=== PATIENT | female | born 1985 | race Caucasian/White ===

== ENCOUNTER 2016-09-05 16:20 | Outpatient (CLI) | payer BC, OTHER ==
[2016-09-05 17:37] LABS: BASOPHILS % 0.3 (0.0-1.5); EOSINOPHILS % 1.8 % (0.0-6.8); MEAN CORPUSCULAR VOLUME 91.2 fl (80.0-100.0); NEUTROPHILS # 6.4 # k/uL (1.4-7.7)
[2016-09-05 17:38] LABS: APPEARANCE,URINE Clear (CLEAR); COLOR,URINE Yellow (YELLOW); OCCULT BLOOD,URINE Trace-intact (NEGATIVE); PH URINE 5.5 (5.0 - 8.0); UROBILINOGEN URINE 0.2 Eu (0.2-1.0)
[2016-09-05 18:00] LABS: eGFR (African) 21; eGFR (Non-African) 17
[2016-09-06 05:01] LABS: PROTEIN mg/dL 90 mg/dL
== END 2016-09-05 16:21 ==
LOC: NEPHRO 16:20
PROVIDERS: ATTEND Internal Medicine Nephrology
DX: N26.9 Renal sclerosis, unspecified (principal); R80.9 Proteinuria, unspecified
CPT/HCPCS: 36415; 80053; 81002; 82570; 84156; 85025; 99213

== ENCOUNTER 2016-09-26 14:24 | Outpatient (CLI) | payer BC, OTHER | END 2016-09-26 14:25 | LOC: NEPHRO 14:24 | PROVIDERS: ATTEND Internal Medicine Nephrology | DX: N04.9 Nephrotic syndrome with unspecified morphologic changes (principal); N26.9 Renal sclerosis, unspecified; I10 Essential (primary) hypertension; N18.9 Chronic kidney disease, unspecified | CPT/HCPCS: 99213 ==

== ENCOUNTER 2016-11-28 15:06 | Outpatient (CLI) | payer BC, OTHER | END 2016-11-28 15:07 | LOC: NEPHRO 15:06 | PROVIDERS: ATTEND Internal Medicine Nephrology | DX: N18.9 Chronic kidney disease, unspecified (principal); I10 Essential (primary) hypertension | CPT/HCPCS: 99213 ==

== ENCOUNTER 2016-11-28 15:58 | Outpatient (CLI) | payer BC, OTHER ==
[2016-11-28 16:24] LABS: BASOPHILS % 0.8 (0.0-1.5); EOSINOPHILS % 3.8 % (0.0-6.8); MEAN CORPUSCULAR HEMOGLOBIN 30.8 pg (28.0-34.0); MEAN CORPUSCULAR VOLUME 86.3 fl (80.0-100.0); MONOCYTES % 4.2 % (0.0-11.0); NEUTROPHILS # 6.5 # k/uL (1.4-7.7)
[2016-11-28 16:27] LABS: APPEARANCE,URINE Clear (CLEAR); COLOR,URINE Yellow (YELLOW); OCCULT BLOOD,URINE Trace-intact (NEGATIVE); PH URINE 5.5 (5.0 - 8.0); UROBILINOGEN URINE 0.2 Eu (0.2-1.0)
[2016-11-28 16:35] LABS: AMORPHOUS SEDIMENT,UR FEW (NEGATIVE)
[2016-11-28 16:45] LABS: eGFR (African) 18; eGFR (Non-African) 15
[2016-11-29 06:11] LABS: PROTEIN mg/dL 195 mg/dL
== END 2016-11-28 16:00 ==
LOC: LAB 15:58
PROVIDERS: ATTEND Internal Medicine Nephrology
DX: N18.9 Chronic kidney disease, unspecified (principal); I10 Essential (primary) hypertension
CPT/HCPCS: 36415; 80053; 81002; 82570; 83970; 84156; 85025

== ENCOUNTER 2016-12-19 15:44 | Outpatient (CLI) | payer BC, OTHER | END 2016-12-19 15:45 | LOC: NEPHRO 15:44 | PROVIDERS: ATTEND Internal Medicine Nephrology | DX: N18.3 Chronic kidney disease, stage 3 (moderate) (principal); I67.4 Hypertensive encephalopathy | CPT/HCPCS: 99213 ==

== ENCOUNTER 2017-03-20 14:53 | Outpatient (CLI) | payer BC, OTHER ==
[2017-03-20 16:55] LABS: BASOPHILS % 0.7 (0.0-1.5); EOSINOPHILS % 2.7 % (0.0-6.8); MEAN CORPUSCULAR HEMOGLOBIN 30.5 pg (28.0-34.0); MEAN CORPUSCULAR VOLUME 88.4 fl (80.0-100.0); MONOCYTES % 3.8 % (0.0-11.0); NEUTROPHILS # 5.3 # k/uL (1.4-7.7)
[2017-03-20 17:07] LABS: eGFR (African) 11; eGFR (Non-African) 9
[2017-03-20 17:21] LABS: APPEARANCE,URINE Clear (CLEAR); COLOR,URINE Yellow (YELLOW); OCCULT BLOOD,URINE 1+ (NEGATIVE); UROBILINOGEN URINE 0.2 Eu (0.2-1.0)
[2017-03-20 17:37] LABS: AMORPHOUS SEDIMENT,UR FEW (NEGATIVE)
[2017-03-21 02:51] LABS: PROTEIN mg/dL 137 mg/dL
== END 2017-03-20 14:54 ==
LOC: NEPHRO 14:53
PROVIDERS: ATTEND Internal Medicine Nephrology
DX: N18.4 Chronic kidney disease, stage 4 (severe) (principal); I10 Essential (primary) hypertension; N04.1 Nephrotic syndrome with focal and segmental glomerular lesions
CPT/HCPCS: 36415; 80053; 81002; 82570; 83970; 84156; 85025; 99213

== ENCOUNTER 2017-05-22 14:33 | Outpatient (CLI) | payer BC, OTHER | END 2017-05-22 14:34 | LOC: NEPHRO 14:33 | PROVIDERS: ATTEND Internal Medicine Nephrology | DX: N18.9 Chronic kidney disease, unspecified (principal); N04.1 Nephrotic syndrome with focal and segmental glomerular lesions | CPT/HCPCS: 99213 ==

== ENCOUNTER 2017-08-14 15:44 | Outpatient (CLI) | payer BC, OTHER | END 2017-08-14 15:45 | LOC: NEPHRO 15:44 | PROVIDERS: ATTEND Internal Medicine Nephrology | DX: N18.5 Chronic kidney disease, stage 5 (principal); I10 Essential (primary) hypertension; D64.9 Anemia, unspecified; E21.3 Hyperparathyroidism, unspecified | CPT/HCPCS: 99213 ==

== ENCOUNTER 2017-10-02 14:22 | Outpatient (CLI) | payer BC, OTHER | END 2017-10-02 14:23 | LOC: NEPHRO 14:22 | PROVIDERS: ATTEND Internal Medicine Nephrology | DX: N18.9 Chronic kidney disease, unspecified (principal); I10 Essential (primary) hypertension; E21.3 Hyperparathyroidism, unspecified; D64.9 Anemia, unspecified | CPT/HCPCS: 99213 ==